=== PATIENT | female | born 1965 | race Caucasian/White ===

== ENCOUNTER 2020-02-17 12:00 | Emergency (ER) | payer OTHER ==
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
[2020-02-17 12:29] VITALS: BMI 24.0
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
[2020-02-17] MEDS ORDERED: morphine CARPU-JECT 4 MG/1 ML DISP.SYRIN IVPUSH ONE (13:48)
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
[2020-02-17 15:23] VITALS: BP 136/86; PULSE 78; TEMP 98.2
--- NOTE | 2020-02-18 11:28 | EKG ---
Test Reason : Blood Pressure : / mmHG Vent. Rate : 074 BPM Atrial Rate : 074 BPM P-R Int : 146 ms QRS Dur : 086 ms QT Int : 376 ms P-R-T Axes : 041 -20 031 degrees QTc Int : 417 ms NORMAL SINUS RHYTHM NORMAL ECG NO PREVIOUS ECGS AVAILABLE Confirmed by ESTER SHI MD ([id number]) on 02/18/2020 11:28:28 AM Referred By: Confirmed By:ESTER SHI MD
== END 2020-02-17 15:58 | disposition home or self-care (01) ==
LOC: JER 12:00
DX: R07.89 Other chest pain (principal); M25.512 Pain in left shoulder; V49.50XA Passenger injured in collision with unspecified motor vehicles in traffic accident, initial encounter
CPT/HCPCS: 70450-TC; 71260-TC; 72125-TC; 73030-TC-LT-FY; 74177-TC; 93005; 93010; 99285-25; Q9967